=== PATIENT | female | born 1970 | race Caucasian/White ===

== ENCOUNTER → 2018-02-27 | Outpatient (CLI) | payer BC ==
[~2018-02-27] MED LIST: CETI10CA3 PO; DOXY1CAP74 PO; FERR325T18 PO; FISH100020 PO; IBUP-232 PO; OXYC1TAB63 PO
== END ==
LOC: CPRE 09:46
PROVIDERS: ATTEND Obstetrics & Gynecology
DX: D25.1 Intramural leiomyoma of uterus (principal)

== ENCOUNTER 2018-03-07 06:01 | Observation (INO) | payer BC ==
[~2018-03-07] VITALS: Ht 165.1 cm; Wt 60.5 kg
[~2018-03-07 06:01] MED LIST changes: -DOXY1CAP74 PO; -IBUP-232 PO; -OXYC1TAB63 PO
[2018-03-07] MEDS ORDERED: SODIUM CHLORID 0.9% 500 ML IV PRN (06:45)
[2018-03-07] MEDS ORDERED: METOPROLOL TARTRATE 25 MG TAB PO PRN (06:45)
[2018-03-07] MEDS ORDERED: CHLORHEXIDINE GLUCONATE 2 % 1 PACK (2 CLOTHS) TOPICAL PRN (06:45)
[2018-03-07] MEDS ORDERED: ceFAZolin 2 GM/NS PREMIX 100 ML IV SCH (06:45)
[2018-03-07] MEDS ORDERED: POVIDONE IODINE 5% (ANTISEPSIS KIT) 4 APPLICATIONS EACH NARE PRN (06:45)
[2018-03-07] MEDS ORDERED: LACTATED RINGER'S 1000 ML IV PRN (06:45)
[2018-03-07] MEDS ORDERED: BUPIVACAINE HCL PF 0.25% 30 ML VIAL ONE (06:58)
[2018-03-07] MEDS ORDERED: ESTROGENS CONJUGATED VAG CREA 15 APPL/30 GM TUBE ONE (06:58)
[2018-03-07] MEDS ORDERED: DOXY1CAP74 PO (07:07)
[2018-03-07] MEDS ORDERED: BUPIVACAINE/EPINEPHRINE 0.25% 50 ML VIAL ONE (07:13)
[2018-03-07] MEDS ORDERED: ACETAMINOPHEN 1000 MG/100 ML 100 ML IV ONE (07:18)
[2018-03-07] MEDS ORDERED: MICROFIBRILLAR COLLAGEN HEMOSTAT 1 GM PKT ONE (07:30)
[2018-03-07] MEDS ORDERED: ceFAZolin 2 GM PREMIX 50 ML ONE (07:33)
[2018-03-07] MEDS ORDERED: FUROSEMIDE 40 MG/4 ML VIAL ONE (09:31)
[2018-03-07] MEDS ORDERED: LACTATED RINGER'S 1000 ML INJ 1,000 ML IV SCH (09:47)
[2018-03-07] MEDS ORDERED: FLUMAZENIL 1 MG/10 ML VIAL ONE (10:00)
[2018-03-07] MEDS ORDERED: SODIUM CHLORIDE 0.9% FLUSH 10 ML FLUSH IV FLUSH PRN (10:00)
[2018-03-07] MEDS ORDERED: DOCUSATE SODIUM 100 MG CAP PO SCH (10:00)
[2018-03-07] MEDS ORDERED: IBUPROFEN 600 MG TAB PO PRN (10:00)
[2018-03-07] MEDS ORDERED: ONDANSETRON HCL 4 MG/2 ML VIAL IVP PRN (10:00)
[2018-03-07] MEDS ORDERED: diphenhydrAMINE HCL 50 MG/ML VIAL IV PUSH PRN (10:00)
[2018-03-07] MEDS ORDERED: ZOLPIDEM TARTRATE 5 MG TAB PO PRN (10:00)
[2018-03-07] MEDS ORDERED: NALOXONE HCL 0.4 MG/ML AMP IV PUSH PRN (10:00)
[2018-03-07] MEDS ORDERED: HYDROmorphone HCL PCA 6 MG/30 ML IV SCH (10:00)
[2018-03-07] MEDS ORDERED: DO NOT ADM ANY ANTICOAGULANT DRUGS PRN (10:11)
[2018-03-07] MEDS ORDERED: MIDAZOLAM HCL 2 MG/2 ML VIAL ONE (10:15)
--- NOTE | 2018-03-07 10:32 | MP ---
cc: Vianney Hand MD DATE OF OPERATION: 03/07/2018 DATE OF PROCEDURE: 03/07/2018 PREOPERATIVE DIAGNOSES: 1. Fibroid uterus. 2. Right ovarian mass. POSTOPERATIVE DIAGNOSES: 1. Fibroid uterus. 2. Right ovarian mass. PROCEDURE: Examination under anesthesia, laparoscopic-assisted vaginal hysterectomy, bilateral salpingectomy, right oophorectomy, cystoscopy. SURGEON: Dr. Hand. ANESTHESIA: General endotracheal anesthesia. FLUIDS: 1500 mL crystalloids. ESTIMATED BLOOD LOSS: 25 mL. URINE OUTPUT: 150 mL, clear yellow at the end of the procedure. FINDINGS: An enlarged fibroid uterus was noted. Bilateral fallopian tubes appeared normal. Left ovary appeared normal. Right ovary on the external surface appeared normal. PROCEDURE: The patient was taken to the operating room where general anesthesia was found to be adequate. She was then prepped and draped in the normal sterile fashion in the dorsal lithotomy position. A Devine catheter was inserted into the urinary bladder under sterile technique. A weighted speculum was placed in the vagina, a single-tooth tenaculum applied to the anterior lip of the cervix. A suture was placed through the anterior lip of the cervix. A medium V-Care uterine manipulator was then placed through the cervix. The balloon was inflated. The remaining instruments were removed from the vagina. The gloves were changed and attention was turned to the abdominal portion of the procedure. A 5 mm incision was made just above the umbilicus and a 5 mm trocar and camera were inserted into the abdominal cavity under direct visualization. The abdomen was insufflated with approximately 3.5 liters of CO2 gas. Two additional 5 mm trocars were placed in the right and left lower quadrants under direct visualization. The harmonic scalpel was then used to transect the round ligaments bilaterally. The bladder flap was created using the harmonic scalpel. The bladder was gently dissected off of the anterior surface of the uterus and cervix. The right infundibulopelvic ligament was then transected using the harmonic scalpel. The harmonic scalpel was used to transect the remaining broad ligaments and uterine arteries on the right side down to the level of the cervix. The left fallopian tube was then transected from the broad ligament using the harmonic scalpel on the broad ligament and left uterine artery was transected using the harmonic scalpel down to the level of the cervix. The vagina was then incised using the harmonic scalpel and the incision was continued circumferentially around the cervix. The uterus, cervix, tubes, and right ovary were then delivered through the vagina and sent to pathology. Hemostasis was noted from all pedicles. The gas was allowed to escape. The instruments were removed from the abdominal cavity. The skin incisions were closed with 4-0 Monocryl. The vaginal cuff was closed in a running fashion with 0 Vicryl. Hemostasis was assured. The Devine catheter was then used to instill approximately 250 mL of saline into the urinary bladder. The Devine catheter was removed, cystoscopy performed. Methylene blue and Lasix were injected and the urine was noted to be effluxing from bilateral ureteral meatuses. The cystoscope was then removed. The Devine catheter was replaced. The sponge, lap, needle and instrument counts were correct. The patient was awakened from anesthesia and transferred to the recovery room in stable condition. Pathology: Uterus, cervix, bilateral fallopian tubes, and right ovary. MD MALIK Seo/RUSSEL , 10:06 AM , 10:32 AM
[2018-03-07] MEDS ORDERED: KETOROLAC TROMETHAMINE 30 MG/ML (IVP) VIAL IV PUSH ONE (11:30)
[2018-03-07] MEDS ORDERED: SODIUM CHLORID 0.9% 500 ML INJ 500 ML IV ONE (11:30)
[2018-03-07] MEDS ORDERED: DEXAMETHASONE SOD PHOS 4 MG/ML VIAL IV ONE (12:00)
[2018-03-07] MEDS ORDERED: PHENYLEPH/NS 1000 MCG/10 ML SYR IV ONE (12:00)
[2018-03-07] MEDS ORDERED: NEOSTIGMINE 5 MG/5 ML SYRINGE IV PUSH ONE (12:00)
[2018-03-07] MEDS ORDERED: ROCURONIUM INJ 50 MG/5 ML SYRINGE IV PUSH ONE (12:00)
[2018-03-07] MEDS ORDERED: LACTATED RINGER'S 1000 ML INJ 1,000 ML IV ONE (12:00)
[2018-03-07] MEDS ORDERED: PROPOFOL 200 MG/20 ML AMP IV ONE (12:00)
[2018-03-07] MEDS ORDERED: LIDOCAINE HCL 1% PF 5 ML SYRINGE OTHER ONE (12:00)
[2018-03-07] MEDS ORDERED: ONDANSETRON HCL 4 MG/2 ML VIAL IV ONE (12:00)
[2018-03-07] MEDS ORDERED: GLYCOPYRROLATE 1 MG/5 ML SYRINGE IV PUSH ONE (12:00)
[2018-03-07 12:20] VITALS: BP 96/69; PULSE 70; RESP 18; TEMP 98.3; O2SAT 99
[2018-03-07] MEDS ORDERED: PCA - TOTAL MG DILAUDID DELIVERED PER SHIFT OTHER SCH (14:00)
[2018-03-07 15:30] VITALS: BP 103/69; PULSE 76; RESP 18; TEMP 98.3; O2SAT 96
[2018-03-07 19:53] VITALS: BP 101/68; PULSE 79; RESP 18; TEMP 98.1
[2018-03-07] MEDS ORDERED: SODIUM CHLORIDE 0.9% FLUSH 10 ML FLUSH IV FLUSH SCH (21:00)
[2018-03-08 00:05] VITALS: BP 94/63; PULSE 62; RESP 17; TEMP 98
[2018-03-08 04:07] VITALS: BP 85/55; PULSE 65; RESP 17; TEMP 98.5
[2018-03-08 06:05] LABS: AUTOMATED NEUTROPHIL # 6.7 TH/MM3 (1.8-7.7); BASOPHIL % 0.2 % (0.0-2.0); HEMATOCRIT 31.4 % (35.0-46.0); HEMOGLOBIN 10.7 GM/DL (11.6-15.3); LYMPH % 17.9 % (9.0-44.0); LYMPHOCYTE # 1.6 TH/MM3 (1.0-4.8); MEAN CELL VOLUME 88.9 FL (80.0-100.0); MEAN CORPUSCULAR HEMOGLOBIN 30.3 PG (27.0-34.0); MEAN CORPUSCULAR HGB CONC 34.1 % (32.0-36.0); MONO % 7.6 % (0.0-8.0); MONOCYTE # 0.7 TH/MM3 (0-0.9); NEUT % 74.3 % (16.0-70.0); PLATELET COUNT 155 TH/MM3 (150-450); RED BLOOD COUNT 3.54 MIL/MM3 (4.00-5.30); RED CELL DISTRIBUTION WIDTH 14.8 % (11.6-17.2)
[2018-03-08 06:16] LABS: CREATININE 0.91 MG/DL (0.50-1.00)
[2018-03-08] MEDS ORDERED: oxyCODONE/ACETAMINOPHEN 5 MG/325 MG TAB PO PRN ×2 (07:00)
--- NOTE | 2018-03-08 07:46 | HHI.PR ---
Subjective Remarks Doing well, pain is well controlled, eating well. Objective Vital Signs Vital Signs Date Time Temp Pulse Resp B/P (MAP) Pulse Ox O2 Delivery O2 Flow Rate FiO2 03/08/18 04:07 98.5 65 17 85/55 (65) 03/08/18 00:05 98.0 62 17 94/63 (73) 03/07/18 19:53 98.1 79 18 101/68 (79) 03/07/18 15:30 98.3 76 18 103/69 (80) 96 03/07/18 15:30 18 03/07/18 12:20 98.3 70 18 96/69 (78) 99 03/07/18 11:45 97.7 64 14 96/64 (75) 100 Room Air 03/07/18 11:45 14 03/07/18 11:30 64 14 95/63 (74) 100 Room Air 03/07/18 11:15 64 14 94/62 (73) 100 Room Air 03/07/18 11:00 62 12 91/60 (70) 100 Room Air 03/07/18 10:45 61 15 86/56 (66) 100 Room Air 03/07/18 10:30 61 10 88/55 (66) 100 Room Air 03/07/18 10:15 71 12 88/53 (65) 98 Room Air 03/07/18 10:08 97.6 75 18 96/54 (68) 97 Room Air I/O 03/07/18 03/07/18 03/07/18 03/08/18 03/08/18 03/08/18 07:00 15:00 23:00 07:00 15:00 23:00 Intake Total 1500 ml 1740 ml Output Total 775 ml 1300 ml 650 ml Balance 725 ml -1300 ml 1090 ml Intake Oral 240 ml IV Total 1500 ml 1500 ml Output Urine Total 750 ml 1300 ml 650 ml Estimated Blood Loss 25 ml Result Diagram: 03/08/1852203/08/18522 Objective Remarks Chest is clear, regular rate and rhythm. Abdomen is soft and non-distended. Incisions are clean and dry. Ext no CCE. A/P Assessment and Plan Post Op Day 1 s/p LAVH, RSO for fibroids, rt ovarian mass Doing well Home today and return to office in two weeks. Vianney Hand MD Mar 08, 2018 07:46
[2018-03-08] MEDS ORDERED: IBUP-232 PO (07:50)
[2018-03-08] MEDS ORDERED: OXYC1TAB63 PO (07:50)
--- NOTE | 2018-03-08 07:50 | HHI.DCPOC ---
Discharge Care Plan Your Health Problems Are: Pelvic pain Report Symptoms to Your Doctor -Temperature above 100.5 degrees -Redness, of incision or excessive or foul smelling drainage -Unusual pain or calf pain -Increased vaginal bleeding -Painful or difficulty urinating -Feelings of extreme sadness or anxiety after 2 weeks Goals to Promote Your Health * To prevent worsening of your condition and complications * To maintain your health at the optimal level Directions to Meet Your Goals Take your medications as prescribed Follow your dietary instruction Follow activity as directed Ensure plenty of rest for recovery Drink fluids for hydration Keep your appointments as scheduled Take your immunizations and boosters as scheduled If your symptoms worsen call your PCP, if no PCP go to Urgent Care Center or Emergency Room Smoking is Dangerous to Your Health. Avoid second hand smoke Call the 24-hour crisis hotline for domestic abuse at Vianney Hand MD Mar 08, 2018 07:50
[2018-03-08 08:30] VITALS: BP 96/60; PULSE 73; RESP 16; TEMP 98.5
== END 2018-03-08 10:57 | disposition home or self-care (01) ==
LOC: HSDC 06:01 → HSDI 09:52 → H1EA 11:55
PROVIDERS: ADMIT Obstetrics & Gynecology; ATTEND Obstetrics & Gynecology
DX: D25.0 Submucous leiomyoma of uterus (principal); N80.0 Endometriosis of uterus; N83.8 Other noninflammatory disorders of ovary, fallopian tube and broad ligament; N72 Inflammatory disease of cervix uteri
CPT/HCPCS: 00840; 58552; 82565; 85025; 86850; 86900; 86901; 88307; 94150; 96374; G0378; J0131; J0690; J1100; J1170; J1885; J1940; J2250; J2370; J2405; J2710; J3010; J7040; J7120